=== PATIENT | female | born 1965 | race Two or more races ===

== ENCOUNTER → 2016-08-25 | Outpatient (CLI) | payer MEDICARE, OTHER ==
[~2016-08-25] MED LIST: CLON-429 PO; DULO20CA43 PO; FOLI-49 PO; HYDR4TAB18 PO; IBUP800T25 PO; MET25 PO; MORP-58 PO; [UNRECOGNIZED DRUG - CODE] SQ
--- NOTE | 2016-08-25 16:28 | RADRPT ---
PROCEDURE: XR Knees. CLINICAL INDICATION: Bilateral knee pain. TECHNIQUE: Total of eight views. Weightbearing frontal, oblique, and lateral views of the both kn ees. Patellar views of both knees. COMPARISON: No prior study is available for comparison. FINDINGS: There is no fracture or dislocation. The soft tissues are normal. There are degenerative changes with osteophytes arising from all 3 joint compartment margins bilater ally. There is mild bilateral lateral joint compartment narrowing. There is no lytic or blastic lesion. There is no radiopaque foreign body. IMPRESSION: 1. Mild to moderate degenerative changes of both knees. 2. No acute abnormality. RPTAT: QQ .Winston Walker MD, MD Date Time Electronically viewed and signed by .Winston Walker MD, on 08/25/2016 16:27 .R/
== END | disposition home or self-care (01) ==
LOC: HKI 14:42
PROVIDERS: ATTEND Orthopaedic Surgery
DX: M25.561 Pain in right knee (principal); M25.562 Pain in left knee; M17.0 Bilateral primary osteoarthritis of knee
CPT/HCPCS: 20610; 73564; G0463